=== PATIENT | male | born 1955 | race Caucasian/White ===

== ENCOUNTER 2017-12-24 00:28 | Emergency (ER) | payer OTHER, SELFPAY ==
[2017-12-24 00:42] VITALS: BP 125/87; PULSE 115; RESP 20; TEMP 36.9; O2SAT 95; BMI 27.9
--- NOTE | 2017-12-24 00:46 | ED.WOUNDLAC ---
HPI - Wound/Laceration General Chief Complaint: Wound/Laceration Stated Complaint: LEFT BIG TOE LACERATION Time Seen by Provider: 12/24/17 00:33 Source: patient Mode of arrival: ambulatory Limitations: no limitations History of Present Illness HPI narrative: 62-year-old male here for evaluation of a laceration to his left great toe. Patient states that he cut this on a cat food can while at home. States that his last tetanus shot was in the past 5 years. Related Data Previous Rx's Medication Instructions Recorded propranolol 60 mg PO BID #180 tab 12/08/16 sumatriptan [Imitrex] 20 mg INTRANASAL PRN PRN #1 bot 12/08/16 carbidopa-levodopa 1 tab PO BID #180 tab 04/28/17 nitroglycerin [Nitrostat] 0.4 mg SUBLINGUAL PRN PRN #30 tab 05/17/17 levocarnitine 330 mg PO BID #180 tab 05/18/17 metoclopramide HCl 5 mg PO HSP #60 tab 05/18/17 benzonatate 100 mg PO TIDP #30 cap 08/11/17 ibuprofen 800 mg PO TIDP #21 tab 08/22/17 Allergies Allergy/AdvReac Type Severity Reaction Status Date / Time fentanyl [FENTANYL] Allergy Unknown Verified 12/24/17 00:46 benztropine [BENZTROPINE] AdvReac Unknown CONFUSION Verified 12/24/17 00:46 bupropion [From WELLBUTRIN] AdvReac Unknown Verified 12/24/17 00:46 topiramate [TOPIRAMATE] AdvReac Unknown VISION Verified 12/24/17 00:46 CHG/FLASHING Review of Systems Constitutional Denies chills, Denies fever(s), Denies lethargy and Denies weakness Musculoskeletal Comments: No pain to left foot Integumentary/Breasts Comments: Laceration to left great toe Neurologic Denies weakness Comments: No changes in sensation to left lower extremity Hematologic/Lymphatic Denies easy bruising [facility] Social History Smoking Status: Never smoker Exam Const General: cooperative and well developed Nutritional Appearance: well nourished Orientation: alert, awake, oriented x3 and not confused Skin Other: Patient with a 1 cm laceration to the medial aspect of the left great toe dorsal aspect. No foreign body. No active bleeding. Neuro Other: Sensation intact to light touch left lower extremity Extrem Other: Left lower extremity unremarkable except for laceration described under skin section Procedures Joint Aspiration/Injection Laceration 1: Site: other (Great toe) Side (If applicable): left Size (cm): 1 Description: linear Depth: simple, single layer Pre-repair: irrigated extensively Skin layer closed with: other (Dermabond and Steri-Strips) MDM - Wound/Laceration MDM Narrative Medical decision making narrative: Neurovascularly intact. No foreign body seen. Up-to-date on tetanus. No active bleeding. Covered with Dermabond and Steri-Strips. Patient given care instructions. He expressed understanding. Gave return precautions. Course Last Vital Signs Temp 98.4 F 12/24/17 00:42 Pulse 115 H 12/24/17 00:42 Resp 20 12/24/17 00:42 BP 125/87 H 12/24/17 00:42 Pulse Ox 95 12/24/17 00:42 Discharge Plan Departure Patient Disposition: Home, Self-Care Clinical Impression: Laceration Instructions: DI for Laceration Repair With Dermabond Activity Restrictions/Additional Instructions: Keep the wound clean. You can shower like normal however do not soak your foot in anything. Return to the emergency department for any new or worsening symptoms Prescriptions: No Action propranolol 60 MG tablet 60 mg PO BID Qty: 180 RF: 3 sumatriptan [Imitrex] 20 MG spray,non-aerosol 20 mg Intranasal PRN PRNQty: 1 RF: 3 carbidopa-levodopa 50 MG/200 MG tablet extended release 1 tab PO BID Qty: 180 RF: 3 nitroglycerin [Nitrostat] 0.4 MG tablet, sublingual 0.4 mg Sublingual PRN PRNQty: 30 RF: 1 metoclopramide HCl 5 MG tablet 5 mg PO HSP Qty: 60 RF: 0 levocarnitine 330 MG tablet 330 mg PO BID Qty: 180 RF: 0 benzonatate 100 MG capsule 100 mg PO TIDP Qty: 30 RF: 0 ibuprofen 800 MG tablet 800 mg PO TIDP Qty: 21 RF: 0
--- NOTE | 2017-12-24 00:52 | PC.NURSE ---
Dr Finch at bedside, plan to Dermabond wound.
[2017-12-24 01:24] VITALS: BP 120/91; PULSE 107; RESP 18; O2SAT 95
== END 2017-12-24 01:25 | disposition home or self-care (01) ==
PROVIDERS: Emergency Provider Emergency Medicine; Family Provider Physician Assistant; PCP Physician Assistant
DX: S91.112A Laceration without foreign body of left great toe without damage to nail, initial encounter (principal); W26.9XXA Contact with unspecified sharp object(s), initial encounter
CPT/HCPCS: 12001; 99282; 99283

== ENCOUNTER → 2018-08-18 14:30 | Outpatient (CLI) | payer OTHER, SELFPAY ==
--- NOTE | 2018-08-18 14:32 | DI.RAD.S_ITS ---
PROCEDURE: XR RIBS RT MIN 3V W CXR 1V INDICATIONS: fall TECHNIQUE: 2 views of the right ribs were acquired, along with a single view chest. COMPARISON: None. FINDINGS: Surgical changes and devices: None. Bones and chest wall: No fractures or dislocations. No suspicious bony lesions. Overlying soft tissues appear unremarkable. Lungs and pleura: No pleural effusions or pneumothorax. Lungs appear clear. There is elevation of the right hemidiaphragm unchanged from the study dated 12/09/17. Mediastinum: Mediastinal contours appear normal. Heart size is normal. IMPRESSION: No displaced ribs visualized. Dictated by: Rosita Wilson M.D. on 08/18/2018 at 14:45 Approved by: Rosita Wilson M.D. on 08/18/2018 at 14:45
== END ==
PROVIDERS: Visit Provider Physician Assistant
DX: R07.81 Pleurodynia (principal)
CPT/HCPCS: 71101

== ENCOUNTER 2020-10-05 05:56 | Emergency (ER) | payer OTHER, SELFPAY ==
--- NOTE | 2020-10-05 05:58 | ED.EYEPROB ---
HPI - Eye Problem <Cindy Brown, DO - Last Filed: 10/10/20 03:23> General Chief complaint: Eye Problems Stated complaint: EXTREME PAIN IN LEFT EYE Time Seen by Provider: 10/05/20 05:57 Source: patient Mode of arrival: Ambulatory Limitations: no limitations History of Present Illness HPI Narrative: 65-year-old male comes emergency department with complaint of pain in his left eye. Patient states he has complex chronic pain issues but currently takes no regular pain medications and has not for several years. He states that his pain woke up from sleep at about 4:00 a.m.. It has increased intensity. He is unsure if it is also Nataly related to his eye and does radiate from his through his scalp towards his neck and into his left chest and arm. His neck chest and arm pain is chronic and not new. Patient does have pain with extraocular eye motion. He did not notice any redness when he looked in the mirror. He is unsure if he has had any decrease in vision but states he has very poor vision. He does wear glasses regularly. He has not seen his improvement engineer the last 3 years but does follow with Dr. Michelle Suarez. He denies photophobia. Denies any numbness, tingling. Denies any facial rash or other skin changes elsewhere. Denies any nausea or vomiting. Patient denies any other symptoms currently. He has never had any prior eye surgeries or intervention. He has not been right ear doing any work that would likely cause of foreign body. Related Data Previous Rx's Medication Instructions Recorded propranolol 60 mg PO BID #180 tab 12/08/16 carbidopa-levodopa 1 tab PO BID #180 tab 04/28/17 nitroglycerin [Nitrostat] 0.4 mg SUBLINGUAL PRN PRN #30 tab 05/17/17 levocarnitine 330 mg PO BID #180 tab 05/18/17 metoclopramide HCl 5 mg PO HSP #60 tab 05/18/17 ibuprofen 800 mg PO TIDP #21 tab 08/22/17 benzonatate 100 mg capsule 100 mg PO TIDP #30 cap 03/01/18 sumatriptan [Imitrex] 20 mg INTRANASAL PRN PRN #1 bot 03/01/18 Allergies Allergy/AdvReac Type Severity Reaction Status Date / Time fentanyl [FENTANYL] Allergy Unknown Verified 08/18/18 13:27 benztropine [BENZTROPINE] AdvReac Unknown CONFUSION Verified 08/18/18 13:27 bupropion [From WELLBUTRIN] AdvReac Unknown Verified 08/18/18 13:27 topiramate [TOPIRAMATE] AdvReac Unknown VISION Verified 08/18/18 13:27 CHG/FLASHING Review of Systems <Cindy Brown DO - Last Filed: 10/10/20 03:23> Review of Systems ROS Unobtainable: All systems reviewed & are unremarkable except as noted in HPI and below Patient History <Cindy Brown DO - Last Filed: 10/10/20 03:23> Social History Smoking Status: Never smoker Smoking Status: Never smoker Substance Use Type: does not use Exam <Cindy Brown DO - Last Filed: 10/10/20 03:23> Narrative Exam Narrative: GEN: Well-nourished male, alert and oriented x 3, patient appears to be in mild distress. HEENT: Atraumatic, pupils are equal round reactive to light, extraocular movements are intact, patient does have increased pain with extraocular movements particularly moving his left eye towards the nose, nares are clear, Visual acuity: right [20/40], left [20/40] with correction (eyeglasses). IOP: Right 17 mm Hg, Left 16 mm Hg General: no globe trauma Eyelids: normal inspection except for slight swelling of the upper lid, do not appreciate any erythema, eyelids everted for exam on left no foreign body appreciated. Conjunctiva/Sclera: normal inspection on the right, patient has some mild injection on the left Corneas: normal inspection, examined with fluroscein on left, there is no uptake over the cornea, but patient does have punctate uptake throughout the sclera. EOM: intact, no palsy/entrapment, patient has pain with movement. Pupils: PERRL, normal accomadation, pupil normal but patient does appear to have slight difference in pupil size. Noted more with room lights off and during testing with light. No other pupillary changes appreciated. Anterior Chambers: normal inspection, no hypema Posterior: normal fundoscopic on bilaterally HEART: Regular rate and rhythm without murmur, clicks, rubs. No carotid bruits, pulses are equal in upper and lower extremities LUNGS:Lungs clear to auscultation, no wheezes, rales, crackles, chest moves symmetrically ABD:bowel sounds normal, soft, non-tender, no guarding, rebound, rigidity, no masses noted, no hepatosplenomegaly] MSCL: Non-tender, full range of motion NEURO:CN 2-12 intact, sensation normal, resting tremor left upper extremity. SKIN: no erythema, versicle or other rash noted. Initial Vital Signs Initial Vital Signs: Vital Signs Temperature 97.6 F 10/05/20 06:00 Pulse Rate 89 10/05/20 06:00 Respiratory Rate 18 10/05/20 06:00 Blood Pressure 139/95 H 10/05/20 06:00 Pulse Oximetry 98 10/05/20 06:00 <Marisol Loja MD - Last Filed: 10/05/20 09:28> Initial Vital Signs Initial Vital Signs: Vital Signs Temperature 97.6 F 10/05/20 06:00 Pulse Rate 89 10/05/20 06:00 Respiratory Rate 18 10/05/20 06:00 Blood Pressure 139/95 H 10/05/20 06:00 Pulse Oximetry 98 10/05/20 06:00 Course <Cindy Brown DO - Last Filed: 10/10/20 03:23> Orders Ordered: Discontinued Medications Fluorescein Sodium (Fluorescein 1 Mg Strip) 1 mg EYE-BOTH NOW ONE Stop: 10/05/20 06:14 Last Admin: 10/05/20 06:19 Dose: 1 mg Documented by: DORIE Proparacaine HCl (Proparacaine 0.5% Ophth Sylvia) 1 drops EYE-BOTH NOW ONE Stop: 10/05/20 06:14 Last Admin: 10/05/20 06:18 Dose: 1 drop Documented by: DORIE Vital Signs Vital signs: Vital Signs - 8 hr 10/05/20 06:00 10/05/20 08:30 Temperature 97.6 F Pulse Rate 89 88 Respiratory Rate 18 Blood Pressure 139/95 H 136/89 Pulse Oximetry 98 96 <Marisol Loja MD - Last Filed: 10/05/20 09:28> Orders Ordered: Discontinued Medications Fluorescein Sodium (Fluorescein 1 Mg Strip) 1 mg EYE-BOTH NOW ONE Stop: 10/05/20 06:14 Last Admin: 10/05/20 06:19 Dose: 1 mg Documented by: DORIE Proparacaine HCl (Proparacaine 0.5% Ophth Sylvia) 1 drops EYE-BOTH NOW ONE Stop: 10/05/20 06:14 Last Admin: 10/05/20 06:18 Dose: 1 drop Documented by: DORIE Vital Signs Vital signs: Vital Signs - 8 hr 10/05/20 06:00 10/05/20 08:30 Temperature 97.6 F Pulse Rate 89 88 Respiratory Rate 18 Blood Pressure 139/95 H 136/89 Pulse Oximetry 98 96 MDM - Eye Problem <Cindy Brown DO - Last Filed: 10/10/20 03:23> Lab Data Result diagrams: 10/05/20 06:36 10/05/20 06:36 Labs: Lab Results 10/05/20 10/05/20 Range/Units 06:36 06:36 WBC 6.6 (4.5-11.0) X10^3/uL RBC 5.42 (4.5-5.9) X10^6/uL Hgb 16.7 (13.5-17.5) g/dL Hct 48.7 (41-53) % MCV 89.8 (80-100) fL MCH 30.8 (26-34) PG MCHC 34.3 (30-36) % RDW 12.9 (11.6-14.8) % Plt Count 223 (150-400) X10^3/uL Neut % (Auto) 67.8 (50-75) % Lymph % (Auto) 22.0 L (25-40) % [place] % (Auto) 6.9 (3-14) % Eos % (Auto) 2.1 (2-4) % Baso % (Auto) 1.2 (0-2) % Neut # (Auto) 4500 (1900-3446) /uL Lymph # (Auto) 1500 (2506-2936) /uL [place] # (Auto) 500 (0-900) /uL Eos # (Auto) 100 (0-450) /uL Baso # (Auto) 100 (0-100) /uL Sodium 138 (137-145) mmol/L Potassium 4.1 (3.4-5.1) mmol/L Chloride 105 (98-107) mmol/L Carbon Dioxide 27 (22-32) mmol/L BUN 21 H (9-20) mg/dL Creatinine 0.88 (0.66-1.25) mg/dL Estimated GFR > 60.0 (>60) mL/min BUN/Creatinine Ratio 23.9 H (6-22) Glucose 116 H (80-110) mg/dL Calcium 8.8 (8.4-10.2) mg/dL [facility] Narrative Medical decision making narrative: 65-year-old male comes with complaint of sudden onset pain left eye, pressures are normal range making glaucoma unlikely. Patient does have some mild injection he also has increased pain with movement as well as some mild swelling periorbitally. Patient does not have any foreign bodies appreciated. He does have punctate uptake throughout the left eye which could be a uveitis or keratitis but with his increased pain with extra ocular movement and plan for CT orbits to evaluate for orbital cellulitis although patient has only mild swelling surrounding orbits. Labs and CT imaging are pending and patient was signed out to Dr. Loja while awaiting results. Patient did defer any pain medication initially. He did have some relief within the eye with proparacaine drops but not completely. <Marisol Loja MD - Last Filed: 10/05/20 09:28> Medical Records Attestation: I reviewed the patient's medical records. Lab Data Attestation: I reviewed the patient's lab results. Labs: Lab Results 10/05/20 10/05/20 Range/Units 06:36 06:36 WBC 6.6 (4.5-11.0) X10^3/uL RBC 5.42 (4.5-5.9) X10^6/uL Hgb 16.7 (13.5-17.5) g/dL Hct 48.7 (41-53) % MCV 89.8 (80-100) fL MCH 30.8 (26-34) PG MCHC 34.3 (30-36) % RDW 12.9 (11.6-14.8) % Plt Count 223 (150-400) X10^3/uL Neut % (Auto) 67.8 (50-75) % Lymph % (Auto) 22.0 L (25-40) % [place] % (Auto) 6.9 (3-14) % Eos % (Auto) 2.1 (2-4) % Baso % (Auto) 1.2 (0-2) % Neut # (Auto) 4500 (6923-9248) /uL Lymph # (Auto) 1500 (5990-6332) /uL [place] # (Auto) 500 (0-900) /uL Eos # (Auto) 100 (0-450) /uL Baso # (Auto) 100 (0-100) /uL Sodium 138 (137-145) mmol/L Potassium 4.1 (3.4-5.1) mmol/L Chloride 105 (98-107) mmol/L Carbon Dioxide 27 (22-32) mmol/L BUN 21 H (9-20) mg/dL Creatinine 0.88 (0.66-1.25) mg/dL Estimated GFR > 60.0 (>60) mL/min BUN/Creatinine Ratio 23.9 H (6-22) Glucose 116 H (80-110) mg/dL Calcium 8.8 (8.4-10.2) mg/dL Imaging Data Orbital CT: Radiologist's Impression: FINDINGS: Image quality: Excellent. Orbits: Globes are symmetrical. The optic nerves are normal in size and enhancement. No retrobulbar masses or fat abnormalities. The extra-ocular muscles are normal and symmetrical in appearance. Lacrimal glands are normal. Optic chiasm is normal. Periorbital soft tissues are normal. Intracranial: The pituitary gland is normal, without sellar or suprasellar masses. Visualized cerebral hemispheres, brainstem, and spinal cord appear normal. Bones and sinuses: Visualized calvarium and facial bones appear intact. Visualized sinuses and mastoids are clear. IMPRESSION: Source of current asymmetric pain is not identified over the orbits. The left orbit is the region of current maximal clinical concern. No adjacent inflammatory process is identified. Dictated by: Carson Alatorre M.D. on 10/05/2020 at 8:08 MDM Narrative Medical decision making narrative: Care is assumed from Dr. Brown. Patient with acute onset severe left eye pain without evidence of conjunctivitis, iritis, severe glaucoma, zoster, CT scan suggests no posterior eye masses or developing retro-orbital cellulitis. Similarly, there are no significant visual changes at this time. With pain continuing and no significant findings on emergency room workup, his improvement engineer's office was contacted. He is discharged to their office for further evaluation of his acute eye pain. Discharge Plan Departure Patient Disposition: Home Clinical Impression: Acute eye pain Instructions: DI for Eye Pain Activity Restrictions/Additional Instructions: please walk over to [facility], Dr Patterson will see you soon. Please give him a copy of your ER note from today Prescriptions: No Action propranolol 60 MG tablet 60 mg PO BID Qty: 180 RF: 3 carbidopa-levodopa 50 MG/200 MG tablet extended release 1 tab PO BID Qty: 180 RF: 3 nitroglycerin [Nitrostat] 0.4 MG tablet, sublingual 0.4 mg Sublingual PRN PRNQty: 30 RF: 1 metoclopramide HCl 5 MG tablet 5 mg PO HSP Qty: 60 RF: 0 levocarnitine 330 MG tablet 330 mg PO BID Qty: 180 RF: 0 ibuprofen 800 MG tablet 800 mg PO TIDP Qty: 21 RF: 0 sumatriptan [Imitrex] 20 mg/actuation spray,non-aerosol 20 mg Intranasal PRN PRNQty: 1 RF: 3 benzonatate 100 mg capsule 100 mg PO TIDP Qty: 30 RF: 0
[2020-10-05 06:00] VITALS: BP 139/95; PULSE 89; RESP 18; TEMP 36.4; O2SAT 98; BMI 27.4
[2020-10-05] MEDS: PROPARACAINE 0.5% OPHTH SOL 1 DROPS EYE-BOTH (06:18)
[2020-10-05] MEDS: FLUORESCEIN 1 MG STRIP EYE-BOTH (06:19)
[2020-10-05 06:46] LABS: Add Manual Diff / Slide Review NO; Basophils Absolute Auto 100 /uL (0-100); Basophils Percent Auto 1.2 % (0-2); Eosinophils Absolute Auto 100 /uL (0-450); Eosinophils Percent Auto 2.1 % (2-4); Hematocrit 48.7 % (41-53); Hemoglobin 16.7 g/dL (13.5-17.5); Lymphocytes Absolute Auto 1500 /uL (1100-4500); Mean Corpuscular HGB Conc 34.3 % (30-36); Mean Corpuscular Hemoglobin 30.8 PG (26-34); Mean Corpuscular Volume 89.8 fL (80-100); Monocytes Absolute Auto 500 /uL (0-900); Monocytes Percent Auto 6.9 % (3-14); Neutrophils Absolute Auto 4500 /uL (1500-7000); Neutrophils Percent Auto 67.8 % (50-75); Platelet Count 223 X10^3/uL (150-400); Red Blood Cell Count 5.42 X10^6/uL (4.5-5.9); Red Cell Distribution Width 12.9 % (11.6-14.8); White Blood Cell Count 6.6 X10^3/uL (4.5-11.0)
[2020-10-05 06:59] LABS: BUN Creatinine Ratio 23.9 (6-22); Blood Urea Nitrogen 21 mg/dL (9-20); Calcium 8.8 mg/dL (8.4-10.2); Carbon Dioxide 27 mmol/L (22-32); Chloride 105 mmol/L (98-107); Estimated Glomerular Filt Rate > 60.0 mL/min (>60); Glucose 116 mg/dL (80-110); HEMOLYSIS < 15 (0-50); Potassium 4.1 mmol/L (3.4-5.1); Sodium 138 mmol/L (137-145)
--- NOTE | 2020-10-05 07:46 | DI.CT.S_ITS ---
PROCEDURE: CT ORBIT BI W CON INDICATIONS: left eye pain, acute onset, pain with EOMI, mild swelling TECHNIQUE: After the administration of intravenous contrast, 2.5 mm axial images acquired through the orbits, with coronal and sagittal reformats. For radiation dose reduction, the following was used: automated exposure control, adjustment of mA and/or kV according to patient size. COMPARISON: None. FINDINGS: Image quality: Excellent. Orbits: Globes are symmetrical. The optic nerves are normal in size and enhancement. No retrobulbar masses or fat abnormalities. The extra-ocular muscles are normal and symmetrical in appearance. Lacrimal glands are normal. Optic chiasm is normal. Periorbital soft tissues are normal. Intracranial: The pituitary gland is normal, without sellar or suprasellar masses. Visualized cerebral hemispheres, brainstem, and spinal cord appear normal. Bones and sinuses: Visualized calvarium and facial bones appear intact. Visualized sinuses and mastoids are clear. IMPRESSION: Source of current asymmetric pain is not identified over the orbits. The left orbit is the region of current maximal clinical concern. No adjacent inflammatory process is identified. Dictated by: Carson Alatorre M.D. on 10/05/2020 at 8:08 Approved by: Carson Alatorre M.D. on 10/05/2020 at 8:11
[2020-10-05 08:30] VITALS: BP 136/89; PULSE 88; O2SAT 96
== END 2020-10-05 09:35 | disposition home or self-care (01) ==
PROVIDERS: Emergency Medicine; Emergency Provider Emergency Medicine
DX: H57.12 Ocular pain, left eye (principal)
CPT/HCPCS: 36415; 70481; 80048; 85025; 99284; Q9967

== ENCOUNTER → 2022-12-07 13:14 | Outpatient (CLI) | payer OTHER, SELFPAY | PROVIDERS: Visit Provider Student in an Organized Health Care Education/Training Program | DX: N39.0 Urinary tract infection, site not specified (principal) | CPT/HCPCS: 87086 ==

== ENCOUNTER 2025-05-13 20:16 | Emergency (ER) | payer OTHER, SELFPAY ==
[2025-05-13] VITALS (10 sets, daily range): BP systolic 117–153; BP diastolic 85–93; PULSE 94–102; RESP 18; TEMP 37.1; O2SAT 93–97; BMI 27.4
--- NOTE | 2025-05-13 21:19 | ED.ABDPAIN ---
HPI - Abdominal Pain <Jeffrey Rice MD - Last Filed: 05/16/25 04:47> General Chief Complaint: Abdominal Pain Stated Complaint: LRQ, N/V, constipated Time Seen by Provider: 05/13/25 21:11 Source: patient Mode of arrival: Ambulatory History of Present Illness HPI narrative: 70-year-old male patient with a history of tremor, Asperger's, chronic pain syndrome and anxiety who complains of right lower quadrant pain with constipation, nausea and vomiting starting this afternoon. He has thrown up 5 or 6 times. No fever or chills. Currently, pain has subsided. Related Data Previous Rx's ?Medication ?Instructions ?Recorded propranolol 60 mg tablet 60 mg PO BID #180 tabs 12/08/16 carbidopa ER 50 mg-levodopa 200 mg 1 tab PO BID #180 tabs 04/28/17 tablet,extended release nitroglycerin 0.4 mg sublingual 0.4 mg sublingual PRN PRN #30 tabs 05/17/17 tablet (Nitrostat) levocarnitine 330 mg tablet 330 mg PO BID #180 tabs 05/18/17 metoclopramide HCl 5 mg tablet 5 mg PO HSP #60 tabs 05/18/17 ibuprofen 800 mg tablet 800 mg PO TIDP #21 tabs 08/22/17 benzonatate 100 mg capsule 100 mg PO TIDP #30 caps 03/01/18 sumatriptan 20 mg/actuation nasal 20 mg intranasal PRN PRN ##1 03/01/18 spray (Imitrex) tamsulosin 0.4 mg capsule (Flomax) 0.4 mg PO BEDTIME #30 caps 05/14/25 Allergies Allergy/AdvReac Type Severity Reaction Status Date / Time fentanyl (FENTANYL) Allergy Unknown Verified 12/07/22 14:14 benztropine (BENZTROPINE) AdvReac Unknown CONFUSION Verified 12/07/22 14:14 bupropion (From WELLBUTRIN) AdvReac Unknown Verified 12/07/22 14:14 topiramate (TOPIRAMATE) AdvReac Unknown VISION Verified 12/07/22 14:14 CHG/FLASHING Review of Systems <Jeffrey Rice MD - Last Filed: 05/16/25 04:47> Review of Systems ROS Unobtainable: All systems reviewed & are unremarkable except as noted in HPI and below Gastrointestinal Gastrointestinal: Reports as per HPI Patient History <Jeffrey Rice MD - Last Filed: 05/16/25 04:47> Social History Smoking Status: Never smoker Smoking Status: Never smoker alcohol intake frequency: 0-2 drinks per day Exam <Jeffrey Rice MD - Last Filed: 05/16/25 04:47> Narrative Exam Narrative: General: Alert and conversant. No distress. Appears well nourished and well hydrated. Resting tremor which is somewhat controllable. Craniofacial: No evidence of trauma. Nontender and no swelling. Eyes: PERRLA EOMI conjunctiva clear Lungs: Clear to auscultation with good air movement. No wheezing, rales or rhonchi. No respiratory distress Cardiac: Regular rate and rhythm with no appreciable murmur or gallop Abdomen: Soft, nontender with no distention or masses. Normal bowel sounds. No rebound or guarding Musculoskeletal: Exam of the extremities, axial spine and ribcage reveals no deformity, bony tenderness or swelling. Range of motion intact Neuro: Alert and oriented. Cranial nerves, motor, sensory and cerebellar all grossly intact. No focal deficit Skin: Warm and normal color. No rashes Psychological: Normal affect and interaction. No evidence of delusion or psychosis. Normal mood. Initial Vital Signs Initial Vital Signs: Vital Signs Temperature 98.8 F 05/13/25 20:24 Pulse Rate 100 H 05/13/25 20:24 Respiratory Rate 18 05/13/25 20:24 Blood Pressure 117/90 05/13/25 20:24 Pulse Oximetry 96 05/13/25 20:24 Oxygen Delivery Method Room Air 05/13/25 20:24 <iMles Beaver DO - Last Filed: 05/14/25 00:57> Initial Vital Signs Initial Vital Signs: Vital Signs Temperature 98.8 F 05/13/25 20:24 Pulse Rate 100 H 05/13/25 20:24 Respiratory Rate 18 05/13/25 20:24 Blood Pressure 117/90 05/13/25 20:24 Pulse Oximetry 96 05/13/25 20:24 Oxygen Delivery Method Room Air 05/13/25 20:24 Course <Jeffrey Rice MD - Last Filed: 05/16/25 04:47> Course Course Narrative: WBC count elevated at 13.1. Otherwise CBC and CMP unremarkable. We will obtain CT scan of the abdomen and pelvis with contrast because of right lower quadrant pain and leukocytosis. 23:00 Patient care signed out to Dr. Beaver with the change of shift with the CT abdomen and pelvis pending. Orders Ordered: Discontinued Medications Lactated Ringer's (Lactated Ringers) 1,000 mls @ 1,000 mls/hr IV BOLUS ONE Stop: 05/14/25 00:08 Last Infusion: 05/14/25 00:14 Dose: Infused Documented By: Admin: 05/13/25 23:21 Dose: 1,000 mls/hr Documented By: DEJAN Ketorolac Tromethamine (Ketorolac 30 Mg/Ml Vial) 15 mg IV NOW ONE Stop: 05/13/25 23:10 Last Admin: 05/13/25 23:21 Dose: 15 mg Documented By: DEJAN Metoprolol Tartrate (Metoprolol Tartrate 5 Mg/5 Ml Inj) 5 mg IV NOW ONE Stop: 05/13/25 22:05 Last Admin: 05/13/25 22:22 Dose: Not Given Documented By: JULIO Ondansetron HCl (Ondansetron 4 Mg/2 Ml Inj) 4 mg IV NOW PRN PRN Reason: Nausea And Vomiting Ondansetron HCl (Ondansetron 4 Mg Odt) 4 mg PO NOW PRN PRN Reason: Nausea And Vomiting Tamsulosin HCl (Tamsulosin 0.4 Mg Capsule) 0.4 mg PO NOW ONE Stop: 05/14/25 00:54 Last Admin: 05/14/25 01:02 Dose: 0.4 mg Documented By: DEJAN Vital Signs Vital signs: Vital Signs - 8 hr 05/13/25 20:24 05/13/25 20:41 05/13/25 20:41 Temperature 98.8 F Pulse Rate 100 H 102 H Respiratory Rate 18 Blood Pressure 117/90 135/91 H Pulse Oximetry 96 97 Oxygen Delivery Method Room Air 05/13/25 21:00 05/13/25 21:00 05/13/25 21:30 Temperature Pulse Rate 99 H 96 H Respiratory Rate Blood Pressure 148/93 H Pulse Oximetry 95 95 Oxygen Delivery Method 05/13/25 21:30 05/13/25 22:00 05/13/25 22:01 Temperature Pulse Rate 98 H 98 H Respiratory Rate Blood Pressure 142/86 H Pulse Oximetry 95 93 Oxygen Delivery Method 05/13/25 22:01 Temperature Pulse Rate Respiratory Rate Blood Pressure 153/86 H Pulse Oximetry Oxygen Delivery Method <Miles Beaver, DO - Last Filed: 05/14/25 00:57> Orders Ordered: Discontinued Medications Lactated Ringer's (Lactated Ringers) 1,000 mls @ 1,000 mls/hr IV BOLUS ONE Stop: 05/14/25 00:08 Last Infusion: 05/14/25 00:14 Dose: Infused Documented By: Admin: 05/13/25 23:21 Dose: 1,000 mls/hr Documented By: DEJAN Ketorolac Tromethamine (Ketorolac 30 Mg/Ml Vial) 15 mg IV NOW ONE Stop: 05/13/25 23:10 Last Admin: 05/13/25 23:21 Dose: 15 mg Documented By: DEJAN Metoprolol Tartrate (Metoprolol Tartrate 5 Mg/5 Ml Inj) 5 mg IV NOW ONE Stop: 05/13/25 22:05 Last Admin: 05/13/25 22:22 Dose: Not Given Documented By: JULIO Ondansetron HCl (Ondansetron 4 Mg/2 Ml Inj) 4 mg IV NOW PRN PRN Reason: Nausea And Vomiting Ondansetron HCl (Ondansetron 4 Mg Odt) 4 mg PO NOW PRN PRN Reason: Nausea And Vomiting Tamsulosin HCl (Tamsulosin 0.4 Mg Capsule) 0.4 mg PO NOW ONE Stop: 05/14/25 00:54 Last Admin: 05/14/25 01:02 Dose: 0.4 mg Documented By: DEJAN Vital Signs Vital signs: Vital Signs - 8 hr 05/13/25 20:24 05/13/25 20:41 05/13/25 20:41 Temperature 98.8 F Pulse Rate 100 H 102 H Respiratory Rate 18 Blood Pressure 117/90 135/91 H Pulse Oximetry 96 97 Oxygen Delivery Method Room Air 05/13/25 21:00 05/13/25 21:00 05/13/25 21:30 Temperature Pulse Rate 99 H 96 H Respiratory Rate Blood Pressure 148/93 H Pulse Oximetry 95 95 Oxygen Delivery Method 05/13/25 21:30 05/13/25 22:00 05/13/25 22:01 Temperature Pulse Rate 98 H 98 H Respiratory Rate Blood Pressure 142/86 H Pulse Oximetry 95 93 Oxygen Delivery Method 05/13/25 22:01 Temperature Pulse Rate Respiratory Rate Blood Pressure 153/86 H Pulse Oximetry Oxygen Delivery Method MDM - Abdominal Pain <Jeffrey Rice MD - Last Filed: 05/16/25 04:47> Lab Data Attestation: I reviewed the patient's lab results. Lab results narrative: WBC count elevated at 13.1 but otherwise unremarkable CBC and CMP 05/13/25 20:37 05/13/25 20:37 Labs: Lab Results 05/13/25 05/13/25 Range/Units 20:37 22:20 WBC 13.1 H (4.5-11.0) X10^3/uL RBC 5.53 (4.5-5.9) X10^6/uL Hgb 17.2 (13.5-17.5) g/dL Hct 50.9 (41-53) % MCV 92.0 (80-100) fL MCH 31.2 (26-34) PG MCHC 33.9 (30-36) % RDW 13.1 (11.6-14.8) % Plt Count 257 (150-400) X10^3/uL Neut % (Auto) 90.3 H (50-75) % Lymph % (Auto) 5.2 L (25-40) % [place] % (Auto) 3.7 (3-14) % Eos % (Auto) 0.1 L (2-4) % Baso % (Auto) 0.7 (0-2) % Neut # (Auto) 73095 H (7418-8983) /uL Lymph # (Auto) 700 L (4007-0120) /uL [place] # (Auto) 500 (0-900) /uL Eos # (Auto) 0 (0-450) /uL Baso # (Auto) 100 (0-100) /uL Sodium 139 (137-145) mmol/L Potassium 4.4 (3.4-5.1) mmol/L Chloride 106 (98-107) mmol/L Carbon Dioxide 25 (22-32) mmol/L BUN 16 (9-20) mg/dL Creatinine 1.20 (0.66-1.25) mg/dL Estimated GFR > 60 (>60) mL/min BUN/Creatinine Ratio 13.3 (6-22) Glucose 124 H (70-99) mg/dL Calcium 9.2 (8.4-10.2) mg/dL Total Bilirubin 1.0 (0.2-1.3) mg/dL AST 31 (17-59) IU/L ALT 23 (<50) IU/L Alkaline Phosphatase 67 (38-126) U/L Total Protein 7.4 (6.3-8.2) g/dL Albumin 4.5 (3.5-5.0) g/dL Globulin 2.9 (1.7-4.1) g/dL Albumin/Globulin Ratio 1.6 (1.0-2.8) Lipase 74 (23-300) U/L Urine RBC 1-5/hpf (0-5/HPF) Urine WBC None seen (0-5/HPF) Ur Squamous Epith Cells 0-1 /hpf (0-5/HPF) Urine Bacteria Occasional (0-1) (None) Vol Urine Centrifuged 10ml (spun) Point of care testing: Urine Dip Bedside Urine Glucose Negative Bedside Urine Bilirubin - Negative Bedside Urine Ketone + 15 Urine Specific [place] 1.020 Bedside Urine Occult Blood + Bedside Urine pH 6.0 Bedside Urine Protein - Negative Bedside Urine Urobilinogen - Negative Bedside Urine Nitrite - Negative Bedside Urine Leukocytes - Negative Esterase MDM Narrative Medical decision making narrative: Right lower quadrant pain improving but elevated WBCs. Therefore CT scan is ordered and pending at the time of change of shift. Possible appendicitis versus other nonsurgical causes of lower abdominal discomfort. <Miles Beaver, DO - Last Filed: 05/14/25 00:57> Lab Data Labs: Lab Results 05/13/25 05/13/25 Range/Units 20:37 22:20 WBC 13.1 H (4.5-11.0) X10^3/uL RBC 5.53 (4.5-5.9) X10^6/uL Hgb 17.2 (13.5-17.5) g/dL Hct 50.9 (41-53) % MCV 92.0 (80-100) fL MCH 31.2 (26-34) PG MCHC 33.9 (30-36) % RDW 13.1 (11.6-14.8) % Plt Count 257 (150-400) X10^3/uL Neut % (Auto) 90.3 H (50-75) % Lymph % (Auto) 5.2 L (25-40) % [place] % (Auto) 3.7 (3-14) % Eos % (Auto) 0.1 L (2-4) % Baso % (Auto) 0.7 (0-2) % Neut # (Auto) 85869 H (8103-0220) /uL Lymph # (Auto) 700 L (6828-9072) /uL [place] # (Auto) 500 (0-900) /uL Eos # (Auto) 0 (0-450) /uL Baso # (Auto) 100 (0-100) /uL Sodium 139 (137-145) mmol/L Potassium 4.4 (3.4-5.1) mmol/L Chloride 106 (98-107) mmol/L Carbon Dioxide 25 (22-32) mmol/L BUN 16 (9-20) mg/dL Creatinine 1.20 (0.66-1.25) mg/dL Estimated GFR > 60 (>60) mL/min BUN/Creatinine Ratio 13.3 (6-22) Glucose 124 H (70-99) mg/dL Calcium 9.2 (8.4-10.2) mg/dL Total Bilirubin 1.0 (0.2-1.3) mg/dL AST 31 (17-59) IU/L ALT 23 (<50) IU/L Alkaline Phosphatase 67 (38-126) U/L Total Protein 7.4 (6.3-8.2) g/dL Albumin 4.5 (3.5-5.0) g/dL Globulin 2.9 (1.7-4.1) g/dL Albumin/Globulin Ratio 1.6 (1.0-2.8) Lipase 74 (23-300) U/L Urine RBC 1-5/hpf (0-5/HPF) Urine WBC None seen (0-5/HPF) Ur Squamous Epith Cells 0-1 /hpf (0-5/HPF) Urine Bacteria Occasional (0-1) (None) Vol Urine Centrifuged 10ml (spun) Point of care testing: Urine Dip Bedside Urine Glucose Negative Bedside Urine Bilirubin - Negative Bedside Urine Ketone + 15 Urine Specific [place] 1.020 Bedside Urine Occult Blood + Bedside Urine pH 6.0 Bedside Urine Protein - Negative Bedside Urine Urobilinogen - Negative Bedside Urine Nitrite - Negative Bedside Urine Leukocytes - Negative Esterase Imaging Data CT scan - abdomen/pelvis: Radiologist's Impression: [address] [address] [address] Scan Report Signed Patient: Riky Shea MR#: [id number] : 1955 Acct:[id number] Age/Sex: 70 / M Date of Service: 05/13/25 Loc: ED Accession Number: [id number] Procedure: CT abdomen pelvis w con Ordering Provider: Miles Beaver D.O. PROCEDURE: CT ABDOMEN PELVIS W CON INDICATIONS: abd pain TECHNIQUE: After the administration of intravenous contrast, axial sections acquired from the lung bases to the pubic symphysis. Coronal and sagittal reformats were performed. For radiation dose reduction, the following was used: automated exposure control, adjustment of mA and/or kV according to patient size. COMPARISON: [facility], CT, ABDOMEN WITH CONTRAST, 04/15/2014, 11:30. FINDINGS: Image quality: Diagnostic. Lower Chest: Left lung base pulmonary nodule measuring 0.5 cm, (5/43), unchanged since 2013 suggesting a benign etiology. Mild atelectasis at the right lung base. No pleural effusion. Asymmetric elevation of the right hemidiaphragm. ABDOMEN: Liver: Small cysts. Gallbladder: No radiopaque gallstones or wall thickening. Biliary ducts: No biliary dilation. Pancreas: No ductal dilation. Spleen: Size is within normal limits. Adrenal Glands: No adrenal nodules. Kidneys and Ureters: Stone in the distal right ureter measuring 0.8 x 0.7 cm, (2/133). Mild right hydroureter. No significant hydronephrosis. No solid renal mass. No additional kidney stones identified. Stomach and Bowel: Normal colonic caliber, without significant wall thickening. Diverticulosis. No diverticulitis. Normal appendix. Peritoneum: No abnormal intraperitoneal fluid. No free air. Ventral Wall: No significant ventral hernia. Abdominal Nodes: No retroperitoneal or mesenteric adenopathy by size criteria. Vessels: Aorta and inferior vena cava are normal in size. PELVIS: Pelvic Organs: Prostatomegaly. Bladder: No bladder wall thickening, accounting for underdistention. Pelvic Nodes: No enlarged lymph nodes. Miscellaneous: Fat containing inguinal hernias, left greater than right. Bones: No aggressive osseous abnormality. Left L5 sacralization. IMPRESSION: 1. Obstructing calculus in the distal right ureter measuring 0.8 cm. Right hydroureter. No significant hydronephrosis. 2. No additional kidney stones are identified. 3. No diverticulitis. [facility] Narrative Medical decision making narrative: Right lower quadrant pain improving but elevated WBCs. Therefore CT scan is ordered and pending at the time of change of shift. Possible appendicitis versus other nonsurgical causes of lower abdominal discomfort. All lab work, vital signs, nurse triage note, medication list, previous ER visits, and all imaging studies reviewed. Patient given fluids and Toradol here. WBC 13.1 hemoglobin 17.2 platelets 257. Sodium 139 potassium 4.4 chloride 106 CO2 25 BUN 16 creatinine 1.2 LFTs normal lipase 74 urine RBC 125 none seen with urine WBC. CT scan showed obstructing calculus in the distal right ureter measuring 0.8 x 0.7 cm. Right. Hydroureter no significant hydronephrosis no additional kidney stones are identified. . No diverticulitis. Differential diagnosis appendicitis, constipation, small-bowel obstruction, pancreatitis, diverticulitis, kidney stone, kidney infection. Patient given flomax and strainer here. Patient will follow up with Dr. Chawla as o/p call office for appointment. Discharge Plan Departure Patient Disposition: Home Clinical Impression: Kidney stone Instructions: DI for Kidney Stones Activity Restrictions/Additional Instructions: Return with new or worsening symptoms. Keep hydrated. Take your medicine as directed. Call urologist office for appointment this week. ? ? Prescriptions: New tamsulosin [Flomax] 0.4 mg capsule 0.4 mg PO BEDTIME Qty: 30 0RF No Action propranolol 60 MG tablet 60 mg PO BID Qty: 180 3RF carbidopa-levodopa 50 MG/200 MG tablet extended release 1 tab PO BID Qty: 180 3RF nitroglycerin [Nitrostat] 0.4 MG tablet, sublingual 0.4 mg Sublingual PRN PRNQty: 30 1RF metoclopramide HCl 5 MG tablet 5 mg PO HSP Qty: 60 0RF levocarnitine 330 MG tablet 330 mg PO BID Qty: 180 0RF ibuprofen 800 MG tablet 800 mg PO TIDP Qty: 21 0RF sumatriptan [Imitrex] 20 mg/actuation spray,non-aerosol 20 mg Intranasal PRN PRNQty: 1 3RF benzonatate 100 mg capsule 100 mg PO TIDP Qty: 30 0RF Referrals: Dash Chawla DO [Physician, Urology] Miscellaneous,Doctor, [Primary Care Provider, Medical] Stand Alone Forms: Patient Portal/API
[2025-05-13 21:41] LABS: Add Manual Diff / Slide Review NO; Hematocrit 50.9 % (41-53); Hemoglobin 17.2 g/dL (13.5-17.5); Lymphocytes Absolute Auto 700 /uL (1100-4500); Mean Corpuscular HGB Conc 33.9 % (30-36); Mean Corpuscular Hemoglobin 31.2 PG (26-34); Mean Corpuscular Volume 92.0 fL (80-100); Platelet Count 257 X10^3/uL (150-400)
[2025-05-13 21:52] LABS: Alanine Aminotransferase 23 IU/L (<50); Albumin 4.5 g/dL (3.5-5.0); Albumin Globulin Ratio 1.6 (1.0-2.8); Alkaline Phosphatase 67 U/L (38-126); Blood Urea Nitrogen 16 mg/dL (9-20); Calcium 9.2 mg/dL (8.4-10.2); Carbon Dioxide 25 mmol/L (22-32); Chloride 106 mmol/L (98-107); Estimated Glomerular Filt Rate > 60 mL/min (>60); Globulin 2.9 g/dL (1.7-4.1); Glucose 124 mg/dL (70-99); HEMOLYSIS 19 (0-50); Lipase 74 U/L (23-300); Potassium 4.4 mmol/L (3.4-5.1); Sodium 139 mmol/L (137-145); Total Protein 7.4 g/dL (6.3-8.2)
[2025-05-13] MEDS: KETOROLAC 30 MG/ML VIAL 15 MG IV (23:21)
[2025-05-13] MEDS: LACTATED RINGERS 1,000 ML 1000 ML IV (23:21)
--- NOTE | 2025-05-13 23:41 | DI.CT.S_ITS ---
PROCEDURE: CT ABDOMEN PELVIS W CON INDICATIONS: abd pain TECHNIQUE: After the administration of intravenous contrast, axial sections acquired from the lung bases to the pubic symphysis. Coronal and sagittal reformats were performed. For radiation dose reduction, the following was used: automated exposure control, adjustment of mA and/or kV according to patient size. COMPARISON: [facility], CT, ABDOMEN WITH CONTRAST, 04/15/2014, 11:30. FINDINGS: Image quality: Diagnostic. Lower Chest: Left lung base pulmonary nodule measuring 0.5 cm, (5/43), unchanged since 2013 suggesting a benign etiology. Mild atelectasis at the right lung base. No pleural effusion. Asymmetric elevation of the right hemidiaphragm. ABDOMEN: Liver: Small cysts. Gallbladder: No radiopaque gallstones or wall thickening. Biliary ducts: No biliary dilation. Pancreas: No ductal dilation. Spleen: Size is within normal limits. Adrenal Glands: No adrenal nodules. Kidneys and Ureters: Stone in the distal right ureter measuring 0.8 x 0.7 cm, (2/133). Mild right hydroureter. No significant hydronephrosis. No solid renal mass. No additional kidney stones identified. Stomach and Bowel: Normal colonic caliber, without significant wall thickening. Diverticulosis. No diverticulitis. Normal appendix. Peritoneum: No abnormal intraperitoneal fluid. No free air. Ventral Wall: No significant ventral hernia. Abdominal Nodes: No retroperitoneal or mesenteric adenopathy by size criteria. Vessels: Aorta and inferior vena cava are normal in size. PELVIS: Pelvic Organs: Prostatomegaly. Bladder: No bladder wall thickening, accounting for underdistention. Pelvic Nodes: No enlarged lymph nodes. Miscellaneous: Fat containing inguinal hernias, left greater than right. Bones: No aggressive osseous abnormality. Left L5 sacralization. IMPRESSION: 1. Obstructing calculus in the distal right ureter measuring 0.8 cm. Right hydroureter. No significant hydronephrosis. 2. No additional kidney stones are identified. 3. No diverticulitis. Dictated by: Jc De Leon M.D. on 05/14/2025 at 0:40 Approved by: Jc De Leon M.D. on 05/14/2025 at 0:46
[2025-05-14 00:06] VITALS: PULSE 94; O2SAT 95
[2025-05-14 00:30] VITALS: PULSE 93; O2SAT 96
[2025-05-14] MEDS: TAMSULOSIN 0.4 MG CAPSULE PO (01:02)
[2025-05-14 01:06] VITALS: BP 135/86; PULSE 94; O2SAT 97
== END 2025-05-14 01:17 | disposition home or self-care (01) ==
PROVIDERS: Emergency Medicine; Emergency Provider Family Medicine
DX: N20.0 Calculus of kidney (principal); K59.00 Constipation, unspecified; R11.2 Nausea with vomiting, unspecified
CPT/HCPCS: 74177; 80053; 81003; 81015; 83690; 85025; 87086; 96361; 96374; 99284; J1885; Q9967